=== PATIENT | female | born 1990 | race Two or more races ===

== ENCOUNTER 2018-04-27 11:28 | Outpatient (CLI) | END 2018-04-27 11:29 | disposition home or self-care (01) | LOC: RHC-LAB 11:28 | PROVIDERS: ATTEND Nurse Practitioner Family | DX: R10.9 Unspecified abdominal pain (principal); E78.5 Hyperlipidemia, unspecified | CPT/HCPCS: 36415; 80053; 80061; 82150; 83690; 84443; 85025 ==

== ENCOUNTER 2018-04-28 10:41 | Outpatient (CLI) ==
--- NOTE | 2018-04-28 12:53 | CT ---
Exam: CT abdomen pelvis without intravenous contrast. Comparison: None available. Reason for exam: Abdominal pain. FINDINGS: No pleural effusion, or focal consolidation in the partially imaged lung bases. The liver prominent in size and is lower in attenuation than the spleen. Image interpretation is limited by the lack of intravenous contrast administration. The spleen, adrenal glands, pancreas, and gallbladder appear grossly unremarkable within limitations of a noncontrasted study. No hydronephrosis, hydroureter, or nephrolithiasis in either kidney. The bladder appears grossly unremarkable. The appendix appears grossly unremarkable. No intra-abdominal free air or pelvic free fluid. No suspicious appearing osteoblastic or osteolytic lesions. There is a tiny only fat containing periumbilical hernia. Impression: 1. No acute inflammatory findings are seen within the abdomen or pelvis. 2. Hepatomegaly with hepatic steatosis
== END 2018-04-28 10:42 | disposition home or self-care (01) ==
LOC: RAD 10:41
PROVIDERS: ATTEND Nurse Practitioner Family
DX: R10.9 Unspecified abdominal pain (principal); R10.815 Periumbilic abdominal tenderness